=== PATIENT | female | born 1975 | race Caucasian/White ===

== ENCOUNTER 2020-10-03 09:28 | Emergency (ER) | payer OTHER ==
[2020-10-03 09:34] VITALS: TEMP 97; BMI 26.2
[2020-10-03 10:49] LABS: BASO % 0.6 % (0-2.0); EOS % 0.2 % (0-4.5); HEMATOCRIT 42.7 % (32.4-45.2); HEMOGLOBIN 14.9 GM/dL (10.7-15.3); LYMPH % 10.5 % (8-40); MCH 32.9 pg (25.7-33.7); MEAN PLT VOLUME 8.3 fl (7.5-11.1); MONO % 5.7 % (3.8-10.2); PLATELET COUNT 256 K/MM3 (134-434); RBC 4.54 M/mm3 (3.60-5.2); RDW 13.6 % (11.6-15.6); WHITE BLOOD COUNT 16.3 K/mm3 (4.0-10.0)
[2020-10-03 10:58] LABS: INR 0.93 (0.83-1.09); PROTHROMBIN TIME (PATIENT) 11.5 SEC (9.7-13.0)
[2020-10-03 11:00] LABS: ACTIVATED PTT 26.9 SECONDS (25.2-36.5)
[2020-10-03 11:09] LABS: POTASSIUM 4.3 mmol/L (3.5-5.1)
[2020-10-03 11:11] LABS: ALBUMIN 4.3 g/dl (3.4-5.0); BLOOD UREA NITROGEN 14.7 mg/dL (7-18); CALCIUM 9.3 mg/dL (8.5-10.1)
[2020-10-03 11:15] LABS: CREATININE 0.7 mg/dL (0.55-1.3)
[2020-10-03 11:16] LABS: BILIRUBIN,TOTAL 0.5 mg/dL (0.2-1); TOT PROT 7.2 g/dl (6.4-8.2)
[2020-10-03] MEDS ORDERED: KETAMINE HCL 200 MG/20 ML VIAL IVPUSH ONE (11:22)
[2020-10-03] MEDS ORDERED: KETAMINE HCL 200 MG/20 ML VIAL ONE (11:32)
[2020-10-03] MEDS ORDERED: MIDAZOLAM HCL 2 MG/2 ML SINGLE DOSE VIAL IVPUSH ONE (11:35)
[2020-10-03] MEDS ORDERED: MIDAZOLAM HCL 2 MG/2 ML SINGLE DOSE VIAL ONE (11:35)
[2020-10-03 15:48] VITALS: BP 134/83; PULSE 91
== END 2020-10-03 14:00 | disposition home or self-care (01) ==
LOC: JER 09:28
PROC: 0PSFXZZ Reposition Right Humeral Shaft, External Approach (ICD-10-PCS; principal; 2020-10-03)
PROC: 3E033NZ Introduction of Analgesics, Hypnotics, Sedatives into Peripheral Vein, Percutaneous Approach (ICD-10-PCS; 2020-10-03)
PROC: 3E033NZ Introduction of Analgesics, Hypnotics, Sedatives into Peripheral Vein, Percutaneous Approach (ICD-10-PCS; 2020-10-03)
DX: S43.014A Anterior dislocation of right humerus, initial encounter (principal)
CPT/HCPCS: 36415; 73030-TC-RT-FY; 80053; 84703; 85025; 85610; 85730; 86850; 86900; 86901; 93005; 93010; 99285-25

== ENCOUNTER 2020-10-21 07:27 | Day surgery (SDC) | payer OTHER ==
[2020-10-21 08:01] VITALS: BMI 26.2
[2020-10-21] MEDS ORDERED: MIDAZOLAM HCL 2 MG/2 ML SINGLE DOSE VIAL ONE ×2 (08:30→09:27)
[2020-10-21] MEDS ORDERED: ROPIVACAINE HCL 0.5% 30ML VIAL ONE (08:30)
[2020-10-21] MEDS ORDERED: PROPOFOL 20 ML ONE (09:27)
[2020-10-21] MEDS ORDERED: fentaNYL CITRATE 250 MCG/5 ML VIAL ONE (09:27)
[2020-10-21] MEDS ORDERED: ROCURONIUM BROMIDE 50 MG/5 ML SYRINGE ONE (09:27)
[2020-10-21] MEDS ORDERED: LIDOCAINE 1%/EPI 1:100000 (20 ML MULTI DOSE VIAL) ONE (10:15)
[2020-10-21] MEDS ORDERED: GUM MASTIC/STORAX/MSAL/ALCOHOL 1 DRP DROPSBTL MC ONE (11:23)
[2020-10-21] MEDS ORDERED: ACETAMINOPHEN INJECTION 100 ML IVPB ONE (11:50)
[2020-10-21] MEDS ORDERED: oxyCODONE HCL 5 MG TABLET PO PRN (11:52)
[2020-10-21] MEDS ORDERED: ONDANSETRON 4 MG/2 ML VIAL IVPUSH PRN (11:52)
[2020-10-21] MEDS ORDERED: PROMETHAZINE HCL 25 MG/1 ML VIAL IVPUSH PRN (11:52)
[2020-10-21] MEDS ORDERED: ACETAMINOPHEN 1000 MG/100 ML VIAL (NON FORMULARY) IVPB ONE (11:53)
[2020-10-21] MEDS ORDERED: KETOROLAC TROMETHAMINE 30 MG/1 ML VIAL IVPUSH ONE (11:54)
[2020-10-21] MEDS ORDERED: LACTATED RINGERS SOLUTION 1,000 ML IV SCH (12:00)
[2020-10-21] MEDS ORDERED: HYDROmorphone HCl 2 MG/ML VIAL IVPUSH PRN (12:33)
[2020-10-21] MEDS: HYDROmorphone HCL/PF 1 MG/ML VIAL ONE ×2 (12:42→13:13)
[2020-10-21] MEDS ORDERED: oxyCODONE HCL 5 MG TABLET ONE (13:56)
[2020-10-21 14:08] VITALS: TEMP 98.2
[2020-10-21 15:03] VITALS: BP 140/81; PULSE 116
== END 2020-10-21 14:55 | disposition home or self-care (01) ==
LOC: FASU 07:27
PROVIDERS: ATTEND Orthopaedic Surgery Sports Medicine
PROC: 0PSC04Z Reposition Right Humeral Head with Internal Fixation Device, Open Approach (ICD-10-PCS; principal; 2020-10-21 10:24)
DX: S42.251A Displaced fracture of greater tuberosity of right humerus, initial encounter for closed fracture (principal); X58.XXXA Exposure to other specified factors, initial encounter; Y92.9 Unspecified place or not applicable; Y93.9 Activity, unspecified
CPT/HCPCS: 23630; C1713; 73060-TC-RT-FY; 76000-TC-FY; 84703; 94760; J0131